=== PATIENT | female | born 1940 | race Caucasian/White ===

== ENCOUNTER 2020-05-06 13:25 | Emergency (ER) | payer MEDICARE, SELFPAY ==
--- NOTE | ~2020-05-06 | XR_ITS ---
EXAMINATION: XR chest 2V EXAM DATE: 05/06/2020 14:54 INDICATION: Shortness of breath. CHF. TECHNIQUE: Frontal and lateral projections of the chest obtained and reviewed. Comparison is made to prior examination from 08/19/2018. FINDINGS: Triple lead pacemaker/AICD device. Cardiac monitoring leads. The lungs are clear. There a re no pleural effusions. Cardiac silhouette is prominent but magnified on this AP technique. There is no pneumothorax suspected. The bones and soft tissues are unremarkable. IMPRESSION: No acute cardiopulmonary findings. Reviewed, dictated and finalized at location A.
[2020-05-06 13:49] VITALS: BP 97/75; PULSE 74; RESP 22; TEMP 36.9; O2SAT 98
--- NOTE | 2020-05-06 14:04 | ECG_ITS ---
Measurements Intervals [place] Rate: 73 P: -85 OK: 135 QRS: -84 QRSD: 160 T: 87 QT: 499 QTc: 552 Interpretive Statements ELECTRONIC ATRIAL PACEMAKER ELECTRONIC VENTRICULAR PACEMAKER NO FURTHER INTERPRETATION IS POSSIBLE ATYPICAL ECG Electronically Signed On 05-06-2020 14:20:09 CDT by Franck East D.O.
[2020-05-06 14:07] VITALS: PULSE 73
[2020-05-06 14:38] LABS: Basophils Absolute Auto 0.1 K/mm3 (0.0-0.1); Basophils Percent Auto 0.8 % (0.2-1.2); Eosinophils Absolute Auto 0.2 K/mm3 (0-0.3); Eosinophils Percent Auto 2.2 % (0-4.4); Hematocrit 35.3 % (37.0-47.0); Hemoglobin 11.4 g/dL (12.0-15.0); Immature Granulocyte Absolute 0.03 K/mm3 (0.00-0.031); Immature Granulocyte Percent A 0.3 % (0-0.5); Lymphocytes Absolute Auto 2.04 K/mm3 (0.9-3.2); Lymphocytes Percent Auto 23.1 % (18.3-44.2); Mean Corpuscular HGB Conc 32.3 g/dl (32-36); Mean Corpuscular Hemoglobin 32.7 pg (26-34); Mean Corpuscular Volume 101.1 fl (80-100); Mean Platelet Volume 8.9 fl (7.4-10.4); Monocytes Percent Auto 11.6 % (2.6-8.5); Neutrophils Absolute Auto 5.5 K/mm3 (1.3-6.7); Platelet Count Result 244 k/mm3 (150-375); Red Blood Count 3.49 M/mm3 (4.2-5.4); Red Cell Distribution Width 13.2 % (11.5-14.5); White Blood Count 8.8 K/mm3 (4.5-10.0)
[2020-05-06 14:50] LABS: Alanine Aminotransferase 27 U/L (4-35); Albumin Level 4.2 g/dL (3.5-5.1); Alkaline Phosphatase 61 U/L (38-126); Anion Gap 5 mmol/L (8-16); Aspartate Amino Transferase 55 U/L (14-36); Bilirubin,Total 0.3 mg/dL (0.2-1.3); Blood Urea Nitrogen 20 mg/dL (7-17); Calcium 8.9 mg/dL (8.4-10.2); Carbon Dioxide 35 mmol/L (22-30); Chloride 100 mmol/L (98-107); Estimated CRCL calculation 21 ml/min; Estimated Glomerular Filt Rate 27; Glucose 93 mg/dL (65-105); Potassium 4.4 mmol/L (3.4-5.0); Sodium 140 mmol/L (137-145)
[2020-05-06 14:53] LABS: D Dimer 0.44 ug/mL (<0.48)
[2020-05-06 15:02] LABS: NT Pro B Type Natriuretic Pept 5020 PG/ML (5-100); Troponin I < 0.012 ng/mL (0.000-0.034)
--- NOTE | 2020-05-06 15:33 | ED.CHESTPAIN ---
HPI - Chest Pain General Chief Complaint: Chest Pain Stated Complaint: CP Time Seen by Provider: 05/06/20 13:32 Source: patient Mode of arrival: EMS Limitations: dementia History of Present Illness HPI narrative: 79-year-old female Patient states that her called an ambulance because he was worried about her breathing Patient states that her breathing is not too bad right now, but she does agree that is been getting worse for about a month She has a pacemaker but is not aware that she is ever had a history of heart failure, and she denies any primary lung disease Her difficulty is primarily exertional, she does not report that she has a orthopnea or paroxysmal nocturnal dyspnea She does not have a cough or a fever, she is not having any swelling of the extremities, and does not complain of chest pain Review of her old chart indicates an echocardiogram done several years ago showing marked left ventricular dilation and an ejection fraction of about 15% at that time Related Data Allergies Allergy/AdvReac Type Severity Reaction Status Date / Time ondansetron AdvReac Unknown Other Verified 11/29/18 10:35 PROCHLORPERAZINE EDISYLATE Allergy Severe NECK SPASMS Uncoded 11/29/18 10:35 PROCHLORPERAZINE MALEATE Allergy Severe NECK SPASMS Uncoded 11/29/18 10:35 Review of Systems Review of Systems: All systems reviewed & are unremarkable except as noted in HPI and below Constitutional: Constitutional: Denies chills, Reports fatigue, Denies fever(s), Denies headache(s) and Reports weakness Eyes: Eyes: Reports no additional eye complaints and Denies change in vision ENT: Denies headache(s), Denies epistaxis, Denies nasal congestion and Denies sore throat Cardiovascular: Cardiovascular: Denies chest pain, Denies leg edema, Denies palpitations and Denies dyspnea Respiratory: Respiratory: Denies cough and Reports dyspnea Gastrointestinal: Gastrointestinal: Denies abdominal pain, Denies diarrhea, Denies nausea and Denies vomiting Genitourinary: Genitourinary: Denies urinary frequency Musculoskeletal: Musculoskeletal: Denies deformity, Denies arthralgias, Denies joint swelling, Denies muscle weakness and Denies numbness Integumentary/Breasts: Skin/Breast: Denies rash and Denies wounds Neurologic: Denies headache(s) and Denies focal weakness Psychiatric: Psychiatric: Reports no additional psychiatric complaints Endocrine: Endocrine: Denies palpitations Hematologic/Lymphatic: Hematologic/Lymphatic: Denies easy bleeding and Denies easy bruising PMFSH Family History Family History (Updated 01/14/16 @ 10:40 by DOCTOR UNKNOWN) Sibling Family history of condition Mother Family history of dementia Social History Social History Smoking status: Never smoker Second hand tobacco smoke exposure: No Alcohol intake: current Exam Const: General: no acute distress, well developed, alert and awake Nutritional Appearance: well nourished HENMT: Head: normocephalic and atraumatic Ears: external ears normal General nose exam: No nasal discharge present and no epistaxis Face and sinus: face symmetric Eyes: Conjunctivae: conjunctivae normal Sclera: sclerae normal EOM: EOMs intact bilaterally Neck: Neck: normal visual inspection, supple and no JVD Chest: Chest palpation & inspection: deferred Other: Pacemaker present Resp: Effort & Inspection: normal respiratory effort Auscultation: clear to auscultation bilaterally, crackles (Few at the bases) and other (BS =) Cardio: Rate: regular rate Rhythm: regular rhythm Heart sounds: no gallops and no murmurs GI: Inspection: normal to inspection GI Palp: Yes Soft to palpation and No Tenderness to palpation present (GI) Back/Spine/Pelvis: Thoracic/Lumbar Spine: thoracic and lumbar spine normal to inspection Skin: General skin exam: normal color and no rashes or lesions noted Neuro: General: patient oriented x3 (alert) and moves all extremities Cranial nerves: Ye
[2020-05-06 16:45] VITALS: BP 106/73; PULSE 73; RESP 16; O2SAT 100
[2020-05-06 18:32] LABS: Troponin I < 0.012 ng/mL (0.000-0.034)
== END 2020-05-06 18:45 | disposition short-term general hospital (02) ==
PROVIDERS: Emergency Provider Emergency Medicine; PCP Family Medicine Adolescent Medicine
DX: I42.9 Cardiomyopathy, unspecified (principal); I50.9 Heart failure, unspecified; F03.90 Unspecified dementia, unspecified severity, without behavioral disturbance, psychotic disturbance, mood disturbance, and anxiety; Z95.0 Presence of cardiac pacemaker
CPT/HCPCS: 36415; 71046; 80053; 83880; 84484; 85025; 85380; 93005; 99285

== ENCOUNTER 2021-05-17 10:39 | Emergency (ER) | payer MEDICARE, SELFPAY ==
--- NOTE | ~2021-05-17 | XR_ITS ---
EXAMINATION: XR shoulder LT min 2V EXAM DATE: 05/17/2021 11:37 INDICATION: Fall ttp superior and posterior no deformity . TECHNIQUE: The following left shoulder projections obtained: frontal projection with internal rotatio n, frontal projection with external rotation, Grashey, and scapular Y view (4+ views). There is no p rior study for comparison. FINDINGS: No evidence of left shoulder rotator cuff calcific tendinosis. There is mild glenohumeral joint, moderate acromioclavicular joint primary osteoarthritis. Triple lead pacemaker/AICD device. T here are no acute fractures identified. 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 No acute fracture suspected. Reviewed, dictated and finalized at location A. 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 No acute fracture s uspected.
--- NOTE | ~2021-05-17 | CT_ITS ---
EXAMINATION: CT brain wo con EXAM DATE: 05/17/2021 11:58 INDICATION: Ground-level fall, struck head . TECHNIQUE: Spiral CT of the head was performed without contrast. Axial, coronal and sagittal images were reviewed. The dose-length product (DLP) for this examination was 529.67 mGy-cm. The exposure w as tailored according to patient size, and iterative reconstruction (ASIR) was used as additional dos e reduction technique. Comparison is made to prior examination from 08/19/2018. FINDINGS: There is no acute intraparenchymal hemorrhage. No evidence of intraparenchymal brain mass lesion. No evidence of acute infarction. Please note that initial head CT has limited sensitivity f or small or acute infarctions. There is mild to moderate periventricular and subcortical hypodensity, nonspecific but probably related to small vessel ischemic disease. There is mild to moderate promi nence of the sulci and ventricles related to cerebral atrophy. There is intracranial carotid arteri osclerosis. There are no extra-axial collections. There is no mass effect or midline shift. Patien t has had right-sided ocular lens surgery. Soft tissue is unremarkable. The visualized sinuses and mastoid air cells are well aerated. IMPRESSION: 1. No acute intracranial findings. 2. Chronic age related findings. Reviewed, dictated and finalized at location A.
[2021-05-17 10:37] VITALS: BP 125/62; PULSE 71; RESP 18; TEMP 36.3; O2SAT 97
--- NOTE | 2021-05-17 11:43 | ED.FALL ---
HPI - Fall General Chief Complaint: Fall Stated Complaint: unwitnessed fall Time Seen by Provider: 05/17/21 11:03 Source: patient History of Present Illness HPI Narrative: Patient presents after a fall. Patient and family were sitting on a bench at [place] they went to stand up the bench slipped away and patient fell onto her left shoulder and struck her head on the ground. Family was with her during the event they turned around and saw her on the ground. Patient reports left shoulder pain and a mild headache. Family brought her to the ER for further evaluation. Patient denies any focal numbness or weakness there is no loss of consciousness she denies use of blood thinners. Related Data Allergies Allergy/AdvReac Type Severity Reaction Status Date / Time ondansetron AdvReac Unknown Other Verified 05/17/21 11:02 PROCHLORPERAZINE EDISYLATE Allergy Severe NECK SPASMS Uncoded 05/17/21 11:02 PROCHLORPERAZINE MALEATE Allergy Severe NECK SPASMS Uncoded 05/17/21 11:02 Review of Systems Review of Systems: CONSTITUTIONAL: Denies fever, chills, or sweats. EYES: Denies visual changes, redness, or discharge. ENT: Denies rhinorrhea, congestion, sore throat, or otalgia. CARDIOVASCULAR: Denies chest pain, palpitations, or edema. RESPIRATORY: Denies cough or dyspnea. GASTROINTESTINAL: Denies abdominal pain, nausea, vomiting, or diarrhea. GENITOURINARY: Denies dysuria or hematuria. SKIN: Denies rash or itching. MUSCULOSKELETAL: Denies back pain, or myalgia. NEUROLOGIC: Denies numbness, dizziness, or weakness. PSYCHIATRIC: Denies anxiety or depression. All systems reviewed & are unremarkable except as noted in HPI and below PMFSH Past Medical History Medical History (Updated 05/17/21 @ 12:29 by Major Liao MD) Dementia Family History Family History Sibling Family history of condition Mother Family history of dementia Social History Social History Smoking status: Never smoker Second hand tobacco smoke exposure: No Alcohol intake: current Exam Narrative: GENERAL: Well-appearing, well-nourished, and in no acute distress. HEAD: Normocephalic, atraumatic. EYES: PERRLA and EOMI. ENT: Nares clear, no rhinorrhea or epistaxis. Mucous membranes moist. NECK: Supple. No masses. No JVD CHEST: Clear to auscultation. No respiratory distress. No wheezes rales or rhonchi HEART: Regular rate and rhythm. No murmur heard. Normal peripheral pulses. ABDOMEN: Soft, nontender, nondistended, normal active bowel sounds. EXTREMITIES: Normal range of motion. Tenderness palpation noted on the superior and posterior aspect of the left shoulder no obvious deformities no open or draining wounds SKIN: Warm, dry, no rash. NEURO: Cranial nerves II through XII are intact patient is 5 out of 5 strength in all extremities sensation intact to light touch in all extremities alert and oriented x3. PSYCH: Normal mood and affect. Course Reevaluation(s) Reevaluation #1: Patient is resting comfortably results and plan reviewed with patient and family patient family are comfortable with outpatient plan. Date: 05/17/21 Time: 12:24 Vital Signs Vital signs: Vital Signs Temperature 36.3 C L 05/17/21 10:37 Pulse Rate 71 05/17/21 10:37 Respiratory Rate 18 05/17/21 10:37 Blood Pressure 125/62 05/17/21 10:37 Pulse Oximetry 97 05/17/21 10:37 Temperature 36.3 C L 05/17/21 10:37 Pulse Rate 72 05/17/21 13:17 Respiratory Rate 18 05/17/21 13:17 Blood Pressure 138/60 05/17/21 13:17 Pulse Oximetry 100 05/17/21 13:17 MDM - Fall MDM Narrative Medical decision making narrative: H&P as above, vss, pt looks clinically well, exam with diffuse left shoulder pain no focal neurological deficits, imaging without acute process, additional labs/img considered, symptomatic relief available as needed, on reevaluation pt continues to
[2021-05-17 13:17] VITALS: BP 138/60; PULSE 72; RESP 18; O2SAT 100
== END 2021-05-17 13:18 ==
PROVIDERS: Emergency Provider Emergency Medicine
DX: S09.90XA Unspecified injury of head, initial encounter (principal); S49.92XA Unspecified injury of left shoulder and upper arm, initial encounter; F03.90 Unspecified dementia, unspecified severity, without behavioral disturbance, psychotic disturbance, mood disturbance, and anxiety; M19.012 Primary osteoarthritis, left shoulder; W18.39XA Other fall on same level, initial encounter
CPT/HCPCS: 70450; 73030; 99284

== ENCOUNTER 2021-05-26 14:20 | Emergency (ER) | payer MEDICARE, SELFPAY ==
--- NOTE | ~2021-05-26 | CT_ITS ---
EXAMINATION: CT chest abdomen pelvis w con DATE: 05/26/2021 17:17 INDICATION: Fall 9 days ago, worsening left flank pain. TECHNIQUE: Computed tomography (CT) of the chest, abdomen, and pelvis was performed with 100 mL Omnip aque-350 intravenous contrast. Automated exposure control and iterative reconstruction technique were employed. The dose-length product was 1306.50 mGy-cm. COMPARISON: CT abdomen pelvis 11/27/2018. FINDINGS: CHEST: No thoracic aortic injury. No mediastinal hematoma. No pericardial effusion. No acute lung injury. No pleural effusion or pneumothorax. Left chest fibrillator/pacer, with intact leads. ABDOMEN/PELVIS: No solid organ injury. No evidence of bowel or mesenteric injury. No free fluid or free air. No retroperitoneal hematoma. Pelvic contents are atraumatic. Hepatomegaly. Low-density liver, likely represent steatosis. Bilateral mild renal scarring and cortic al thinning. Mild bilateral perinephric stranding. Subcentimeter hypodensities in the kidneys, likely simple renal cysts. Diverticulosis without diverticulitis. Bladder wall thickening, as can be seen w ith cystitis in the appropriate clinical context. MUSCULOSKELETAL: Nondisplaced fractures of the left posterior seventh and 12th ribs. No fracture or traumatic malalignment of the thoracic or lumbar spine. Left flank contusion. IMPRESSION: Nondisplaced fractures of the left posterior seventh and 12th ribs, left flank contusion, no other ac padma traumatic process detected in the chest, abdomen, or pelvis. Possible cystitis. Reviewed, dictated and finalized at location K. IMPRESSION: Nondisplaced fractures of the left posterior seventh and 12th ribs, left flank contusion, no other acute traumatic process detected in the chest, abdomen, or pelvis. Possible cystitis.
[2021-05-26 14:41] VITALS: BP 118/54; PULSE 81; RESP 18; TEMP 36.1; O2SAT 96
[2021-05-26] MEDS: SODIUM CHLORIDE 0.9% IV 500 ML 999 ML IV CONT (15:52)
--- NOTE | 2021-05-26 15:55 | PC.NURSE ---
pt unable to urinate at this time. pt declining straight cath.
[2021-05-26 16:03] LABS: Basophils Absolute Auto 0.1 K/mm3 (0.0-0.1); Basophils Percent Auto 0.6 % (0.2-1.2); Eosinophils Absolute Auto 0.1 K/mm3 (0-0.3); Eosinophils Percent Auto 1.5 % (0-4.4); Hematocrit 34.7 % (37.0-47.0); Hemoglobin 11.1 g/dL (12.0-15.0); Immature Granulocyte Absolute 0.06 K/mm3 (0.00-0.031); Immature Granulocyte Percent A 0.6 % (0-0.5); Lymphocytes Absolute Auto 1.39 K/mm3 (0.9-3.2); Mean Corpuscular Hemoglobin 33.6 pg (26-34); Mean Corpuscular Volume 105.2 fl (80-100); Mean Platelet Volume 9.3 fl (7.4-10.4); Monocytes Absolute Auto 0.8 K/mm3 (0.1-0.6); Monocytes Percent Auto 8.5 % (2.6-8.5); Neutrophils Absolute Auto 6.8 K/mm3 (1.3-6.7); Neutrophils Percent Auto 73.8 % (45.5-73.1); Platelet Count Result 229 k/mm3 (150-375); Red Cell Distribution Width 12.9 % (11.5-14.5); White Blood Count 9.3 K/mm3 (4.5-10.0)
[2021-05-26 16:55] LABS: Alanine Aminotransferase 27 U/L (4-35); Albumin Level 4.1 g/dL (3.5-5.1); Alkaline Phosphatase 64 U/L (38-126); Anion Gap 7 mmol/L (8-16); Aspartate Amino Transferase 45 U/L (14-36); Bilirubin,Total 0.3 mg/dL (0.2-1.3); Blood Urea Nitrogen 21 mg/dL (7-17); Calcium 8.3 mg/dL (8.4-10.2); Carbon Dioxide 27 mmol/L (22-30); Chloride 104 mmol/L (98-107); Estimated CRCL calculation 33 ml/min; Estimated Glomerular Filt Rate 40; Glucose 140 mg/dL (65-110); Potassium 3.9 mmol/L (3.4-5.0); Sodium 138 mmol/L (137-145)
--- NOTE | 2021-05-26 16:58 | PC.NURSE ---
pt went to bathroom and was unable to give urine sample.
--- NOTE | 2021-05-26 18:16 | ED.BACK ---
HPI - Back Pain/Injury General Chief Complaint: Back Pain/Injury Stated Complaint: back pain Time Seen by Provider: 05/26/21 15:19 Source: patient and family History of Present Illness HPI Narrative: Patient presents with left-sided back pain. She was seen approximately 10 days ago after a fall she had imaging of her head and shoulder there is no mention back pain at that time however over the past several days she has had left-sided back pain and development of bruising in that area and her family were concerned so she came to the ER for further evaluation. Pain is sharp, constant, worse with deep inspiration, no radiation. She reports her shoulder pain and had pain from prior evaluation has improved. Patient and family deny any new injuries Related Data Allergies Allergy/AdvReac Type Severity Reaction Status Date / Time ondansetron AdvReac Unknown Other Verified 05/17/21 11:02 PROCHLORPERAZINE EDISYLATE Allergy Severe NECK SPASMS Uncoded 05/17/21 11:02 PROCHLORPERAZINE MALEATE Allergy Severe NECK SPASMS Uncoded 05/17/21 11:02 Review of Systems Review of Systems: CONSTITUTIONAL: Denies fever, chills, or sweats. EYES: Denies visual changes, redness, or discharge. ENT: Denies rhinorrhea, congestion, sore throat, or otalgia. CARDIOVASCULAR: Denies chest pain, palpitations, or edema. RESPIRATORY: Denies cough or dyspnea. GASTROINTESTINAL: Denies abdominal pain, nausea, vomiting, or diarrhea. GENITOURINARY: Denies dysuria or hematuria. SKIN: Denies rash or itching. MUSCULOSKELETAL: Denies joint pain, or myalgia. NEUROLOGIC: Denies headache, numbness, dizziness, or weakness. PSYCHIATRIC: Denies anxiety or depression. PMFSH Past Medical History Medical History Dementia Family History Family History Sibling Family history of condition Mother Family history of dementia Social History Social History Smoking status: Never smoker Second hand tobacco smoke exposure: No Alcohol intake: current Exam Narrative: GENERAL: Well-appearing, well-nourished, and in no acute distress. HEAD: Normocephalic, atraumatic. EYES: PERRLA and EOMI. ENT: Nares clear, no rhinorrhea or epistaxis. Mucous membranes moist. NECK: Supple. No masses. No JVD CHEST: Clear to auscultation. No respiratory distress. No wheezes rales or rhonchi HEART: Regular rate and rhythm. No murmur heard. Normal peripheral pulses. ABDOMEN: Soft, nontender, nondistended. BACK: Ecchymoses to the left lower thoracic back with tenderness along the lower posterior ribs no crepitus no open or draining wounds EXTREMITIES: Normal range of motion. No edema. SKIN: Warm, dry, no rash. NEURO: No focal deficits. Alert and oriented x3. PSYCH: Normal mood and affect. Course Reevaluation(s) Reevaluation #1: Patient continues with her pain on the left back she continues to deny the need for pain medication results reviewed with patient and family patient and family are comfortable with the outpatient plan. Date: 05/26/21 Time: 18:23 Vital Signs Vital signs: Vital Signs Temperature 36.1 C L 05/26/21 14:41 Pulse Rate 81 05/26/21 14:41 Respiratory Rate 18 05/26/21 14:41 Blood Pressure 118/54 L 05/26/21 14:41 Pulse Oximetry 96 05/26/21 14:41 Temperature 36.1 C L 05/26/21 14:41 Pulse Rate 81 05/26/21 14:41 Respiratory Rate 18 05/26/21 14:41 Blood Pressure 118/54 L 05/26/21 14:41 Pulse Oximetry 96 05/26/21 14:41 MDM - Back Pain/Injury MDM Narrative Medical decision making narrative: H&P as above, vss, pt looks clinically well, exam ecchymosis and tenderness on the left lower posterior chest wall, labs clinic unremarkable for acute process, img with 2 nondisplaced rib fractures, additional labs/img considered, symptomatic relief available as needed, on reevaluation pt continues t
== END 2021-05-26 18:35 ==
PROVIDERS: Emergency Provider Emergency Medicine
DX: S22.42XA Multiple fractures of ribs, left side, initial encounter for closed fracture (principal); F03.90 Unspecified dementia, unspecified severity, without behavioral disturbance, psychotic disturbance, mood disturbance, and anxiety; W19.XXXA Unspecified fall, initial encounter
CPT/HCPCS: 36415; 71260; 74177; 80053; 85025; 96360; 99284; J7040; Q9967

== ENCOUNTER 2021-09-12 14:30 | Emergency (ER) | payer MEDICARE, SELFPAY ==
--- NOTE | ~2021-09-12 | XR_ITS ---
EXAM: XR foot LT min 3V DATE: 09/12/2021 14:59 HISTORY: tripped and hurt left foot PAIN MEDIAL . COMPARISON: None available. FINDINGS: Decreased mineralization. No fracture or dislocation. No lytic or blastic lesion. Scattere d moderate degenerative changes. Plantar enthesopathy. No erosion or periosteal change. Soft tissues within normal limits. IMPRESSION: No acute osseous finding in the left foot. Reviewed, dictated and finalized at location K.
[2021-09-12 14:39] VITALS: BP 103/87; PULSE 73; RESP 16; TEMP 36.6; O2SAT 96
--- NOTE | 2021-09-12 15:39 | ED.GENADULT ---
HPI - General Adult General Chief complaint: Extremity Injury, Lower Stated complaint: fall, left foot pain Time Seen by Provider: 09/12/21 15:29 History of Present Illness HPI narrative: 81-year-old female presents for evaluation of left dorsal foot pain after stumbling while walking with her walker. Since then she has felt a dorsal foot pain over the first metatarsal. She is able to ambulate but it is painful to do so. No head or neck injury. Related Data Allergies Allergy/AdvReac Type Severity Reaction Status Date / Time ondansetron AdvReac Unknown Other Verified 09/12/21 15:29 PROCHLORPERAZINE EDISYLATE Allergy Severe NECK SPASMS Uncoded 09/12/21 15:29 PROCHLORPERAZINE MALEATE Allergy Severe NECK SPASMS Uncoded 09/12/21 15:29 Review of Systems Review of Systems: CONSTITUTIONAL: Denies fever, chills, or sweats. EYES: Denies visual changes, redness, or discharge. ENT: Denies rhinorrhea, congestion, sore throat, or otalgia. CARDIOVASCULAR: Denies chest pain, palpitations, or edema. RESPIRATORY: Denies cough or dyspnea. GASTROINTESTINAL: Denies abdominal pain, nausea, vomiting, or diarrhea. GENITOURINARY: Denies dysuria or hematuria. SKIN: Denies rash or itching. MUSCULOSKELETAL: Denies back pain, joint pain, or myalgia. NEUROLOGIC: Denies headache, numbness, or weakness. PSYCHIATRIC: Denies anxiety or depression. PMFSH Past Medical History Medical History Dementia Family History Family History Sibling Family history of condition Mother Family history of dementia Social History Social History Smoking status: Never smoker Second hand tobacco smoke exposure: No Alcohol intake: current Exam Narrative: GENERAL: Well-appearing, well-nourished, and in no acute distress. HEAD: Normocephalic, atraumatic. EYES: PERRLA and EOMI. ENT: Nares clear, no rhinorrhea or epistaxis. Mucous membranes moist. NECK: Supple. CHEST: Clear to auscultation. No respiratory distress. HEART: Regular rate and rhythm. No murmur heard. Normal peripheral pulses. ABDOMEN: Soft, nontender, nondistended, normal active bowel sounds. EXTREMITIES: Normal range of motion. No edema., Mild redness over the left first MTP SKIN: Warm, dry, no rash. NEURO: No focal deficits. Alert and oriented x3. PSYCH: Normal mood and affect. Course Vital Signs Vital signs: Vital Signs Temperature 97.8 F 09/12/21 14:39 Pulse Rate 73 09/12/21 14:39 Respiratory Rate 16 09/12/21 14:39 Blood Pressure 103/87 09/12/21 14:39 Pulse Oximetry 96 09/12/21 14:39 Oxygen Delivery Room Air 09/12/21 14:39 Temperature 97.8 F 09/12/21 14:39 Pulse Rate 73 09/12/21 14:39 Respiratory Rate 16 09/12/21 14:39 Blood Pressure 103/87 09/12/21 14:39 Pulse Oximetry 96 09/12/21 14:39 Oxygen Delivery Room Air 09/12/21 14:39 Medical Decision Making MDM Narrative Medical decision making narrative: 81-year-old female with left dorsal foot pain after stumbling. X-ray is unremarkable. Compressive wrap applied patient is stable for discharge. Vital Signs Vital Signs: Vital Signs Temperature 97.8 F 09/12/21 14:39 Pulse Rate 73 09/12/21 14:39 Respiratory Rate 16 09/12/21 14:39 Blood Pressure 103/87 09/12/21 14:39 Pulse Oximetry 96 09/12/21 14:39 Oxygen Delivery Room Air 09/12/21 14:39 Temperature 97.8 F 09/12/21 14:39 Pulse Rate 73 09/12/21 14:39 Respiratory Rate 16 09/12/21 14:39 Blood Pressure 103/87 09/12/21 14:39 Pulse Oximetry 96 09/12/21 14:39 Oxygen Delivery Room Air 09/12/21 14:39 Discharge Plan Discharge Clinical Impression: Bruise Patient Disposition: Home, Self-Care Condition: Stable Instructions: Antibiotic Form Prescriptions: No Action gabapentin 300 mg capsule 300 mg PO D
[2021-09-12] MEDS: ACETAMINOPHEN 325 MG TABLET 650 MG PO (15:51)
== END 2021-09-12 16:18 | disposition home or self-care (01) ==
PROVIDERS: Emergency Provider Emergency Medicine
DX: S90.32XA Contusion of left foot, initial encounter (principal); F03.90 Unspecified dementia, unspecified severity, without behavioral disturbance, psychotic disturbance, mood disturbance, and anxiety; W18.40XA Slipping, tripping and stumbling without falling, unspecified, initial encounter
CPT/HCPCS: 73630; 99283; A9270

== ENCOUNTER 2022-04-27 12:37 | Observation (INO) | payer MEDICARE, SELFPAY ==
[2022-04-27] VITALS (31 sets, daily range): BP systolic 85–124; BP diastolic 54–70; PULSE 70–80; RESP 13–22; TEMP 36.2–37.1; O2SAT 95–98; BMI 23.8; BMI 25.4
--- NOTE | ~2022-04-27 | CT_ITS ---
EXAMINATION: CT brain wo con INDICATION: Transient alteration of awareness COMPARISON: 05/17/2021 TECHNIQUE: Standard unenhanced head CT. The dose-length product (DLP) was 605.33 mGy-cm. The mA was a djusted according to patient size. Iterative reconstruction technique was employed. FINDINGS: There is no acute intraparenchymal hemorrhage. No evidence of mass lesion. No evidence of a cute infarction. There is mild periventricular and subcortical hypodensity probably related to small vessel ischemic disease. There is mild prominence of the sulci and ventricles related to cerebral atr ophy. Intracranial calcified cerebral atherosclerosis is noted. There are no extra-axial collections. There is no mass effect or midline shift. The orbits and soft tissues are unremarkable. The visualiz ed sinuses and mastoid air cells are well aerated. IMPRESSION: 1. No acute intracranial abnormality. 2. Age related findings. Reviewed, dictated and finalized at location L.
--- NOTE | ~2022-04-27 | XR_ITS ---
EXAMINATION: XR humerus RT INDICATION: Right arm pain TECHNIQUE: Two views of the right humerus are obtained. COMPARISON: None available FINDINGS: Bone alignment is normal. There is no fracture. The soft tissues are unremarkable. 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 IMPRESSION: 1. No acute osseous abnormality. Reviewed, dictated and finalized at location L.
--- NOTE | ~2022-04-27 | XR_ITS ---
EXAMINATION: XR humerus LT INDICATION: Left arm pain after fall TECHNIQUE: Two views of the left humerus are obtained. COMPARISON: None available FINDINGS: Bone alignment is normal. There is no fracture. There is mild osteoarthritis of the shoulde r. The soft tissues are unremarkable. A cardiac pacemaker is noted. IMPRESSION: 1. No acute osseous abnormality. Reviewed, dictated and finalized at location L.
--- NOTE | ~2022-04-27 | XR_ITS ---
EXAMINATION: XR chest 1V INDICATION: Chest pain after fall TECHNIQUE: AP view of the chest is obtained. COMPARISON: 05/06/2020 FINDINGS: The lungs are free of acute opacities. No pleural effusion or pneumothorax. The heart size is normal. A triple lead cardiac pacemaker of the left chest wall ends with leads in expected locatio ns. IMPRESSION: 1. No acute cardiopulmonary abnormality. Reviewed, dictated and finalized at location L.
--- NOTE | 2022-04-27 12:56 | ECG_ITS ---
Measurements Intervals [place] Rate: 73 P: 263 [place]: 138 QRS: -89 QRSD: 164 T: 82 QT: 413 QTc: 456 Interpretive Statements ELECTRONIC ATRIAL PACEMAKER ELECTRONIC VENTRICULAR PACEMAKER NO FURTHER INTERPRETATION IS POSSIBLE ATYPICAL ECG COMPARED TO ECG 05/06/2020 14:17:34 NO SIGNIFICANT CHANGES Electronically Signed On 04-27-2022 14:04:28 CDT by Franck East D.O.
--- NOTE | 2022-04-27 13:12 | ED.SYNCOPE ---
HPI - Syncope General Chief Complaint: Seizure Stated Complaint: Seizure Time Seen by Provider: 04/27/22 12:44 Source: patient, family, EMS, RN notes reviewed and old records reviewed Mode of arrival: EMS Limitations: dementia History of Present Illness HPI narrative: This is s 81 year old female with history of dementia who presents from [place] for evaluation of possible syncope vs seizure. It is reported that patient stood up and she had jerking movement. She then fell backwards hitting her head. It is reported that she loss consciousness for a minute . They were able to get her up, and they deny postictal period. Patient had bowel movement afterwards so nursing is cleaning patient on arrival to ER. Patient's only complaint is left upper arm pain with movement. Her is at bedside . He states that she normally walks with a walker. Related Data Home Medications Medication Instructions Recorded Confirmed Calcium + D 1 tab-cap PO BID 04/27/22 04/27/22 amiodarone 100 mg tablet 100 mg PO DAILY 04/27/22 04/27/22 cyanocobalamin (vitamin B-12) 1,000 mcg PO DAILY 04/27/22 04/27/22 1,000 mcg tablet difluprednate 0.05 % eye drops 1 drp RIGHT EYE QID 04/27/22 04/27/22 donepezil 10 mg tablet 10 mg PO DAILY 04/27/22 04/27/22 escitalopram oxalate 10 mg tablet 10 mg PO DAILY 04/27/22 04/27/22 furosemide 40 mg tablet 40 mg PO DAILY 04/27/22 04/27/22 ketoconazole 2 % shampoo 1 applic topical 3XW 04/27/22 04/27/22 lidocaine 5 % topical patch 1 patch transdermal DAILY 04/27/22 04/27/22 light mineral oil-mineral oil (PF) 1 drp ophthalmic (eye) QID 04/27/22 04/27/22 0.5 %-0.5 % eye drops,dropperette (Retaine MGD (PF)) loperamide 1 cap PO QID PRN Diarrhea 04/27/22 04/27/22 metoprolol succinate 25 mg 25 mg PO DAILY 04/27/22 04/27/22 tablet,extended release 24 hr mirtazapine 15 mg tablet 15 mg PO DAILY 04/27/22 04/27/22 pantoprazole 40 mg tablet,delayed 40 mg PO BID 04/27/22 04/27/22 release potassium chloride 10 mEq 10 meq PO DAILY 04/27/22 04/27/22 tablet,extended release simvastatin 20 mg tablet 20 mg PO HS 04/27/22 04/27/22 triamcinolone acetonide 0.1 % 1 applic topical BID 04/27/22 04/27/22 topical cream white petrolatum-mineral oil 80 1 applic EACH EYE HS 04/27/22 04/27/22 %-20 % eye ointment (Retaine PM) Allergies Allergy/AdvReac Type Severity Reaction Status Date / Time ondansetron AdvReac Unknown Other Verified 09/12/21 15:29 PROCHLORPERAZINE EDISYLATE Allergy Severe NECK SPASMS Uncoded 09/12/21 15:29 PROCHLORPERAZINE MALEATE Allergy Severe NECK SPASMS Uncoded 09/12/21 15:29 Review of Systems Constitutional: Constitutional: Denies weakness Cardiovascular: Cardiovascular: Denies syncope, Denies rapid heart rate, Denies irregular heart rhythm, Denies leg edema and Denies dyspnea Respiratory: Respiratory: Denies chest congestion, Denies hemoptysis, Denies excessive phlegm production and Denies dyspnea Gastrointestinal: Gastrointestinal: Denies abdominal pain, Denies hematochezia, Denies diarrhea and Denies vomiting Genitourinary: Genitourinary: Denies hematuria and Denies dysuria Musculoskeletal: Musculoskeletal: Reports arthralgias, Denies joint swelling, Denies loss of height and Denies muscle weakness Neurologic: Denies syncope, Denies focal weakness and Denies weakness [facility] Past Medical History Medical History (Updated 04/27/22 @ 21:47 by Meghan Persaud MD) Dementia Hypertension Other hyperlipidemia Surgical History Surgical History (Updated 04/27/22 @ 13:18 by Meghan Persaud MD) History of appendectomy Family History Family History Sibling Family history of condition Mother Family history of dementia Social History Social History Smoking status: Never smoker Second hand tobacco smoke exposure: No Alcohol intake: never Substance use: never [place]
[2022-04-27 13:15] LABS: Hematocrit 35.3 % (37.0-47.0); Hemoglobin 11.5 g/dL (12.0-15.0); Mean Corpuscular HGB Conc 32.6 g/dl (32-36); Mean Corpuscular Hemoglobin 32.1 pg (26-34); Mean Corpuscular Volume 98.6 fl (80-100); Red Blood Count 3.58 M/mm3 (4.2-5.4); White Blood Count 9.6 K/mm3 (4.5-10.0)
[2022-04-27 13:16] LABS: Basophils Absolute Auto 0.1 K/mm3 (0.0-0.1); Basophils Percent Auto 0.5 % (0.2-1.2); Eosinophils Absolute Auto 0.3 K/mm3 (0-0.3); Eosinophils Percent Auto 3.1 % (0-4.4); Immature Granulocyte Absolute 0.06 K/mm3 (0.00-0.031); Immature Granulocyte Percent A 0.6 % (0-0.5); Lymphocytes Percent Auto 14.6 % (18.3-44.2); Mean Platelet Volume 9.6 fl (7.4-10.4); Monocytes Absolute Auto 0.7 K/mm3 (0.1-0.6); Monocytes Percent Auto 7.6 % (2.6-8.5); Neutrophils Percent Auto 73.6 % (45.5-73.1); Platelet Count Result 219 k/mm3 (150-375)
[2022-04-27 13:28] LABS: Alanine Aminotransferase 19 U/L (6-35); Albumin Level 4.1 g/dL (3.5-5.1); Alkaline Phosphatase 72 U/L (38-126); Anion Gap 9 mmol/L (8-16); Aspartate Amino Transferase 30 U/L (14-36); Bilirubin,Total 0.6 mg/dL (0.2-1.3); Blood Urea Nitrogen 18 mg/dL (7-17); Calcium 8.6 mg/dL (8.4-10.2); Carbon Dioxide 30 mmol/L (22-30); Chloride 102 mmol/L (98-107); Estimated CRCL calculation 34 ml/min; Estimated Glomerular Filt Rate 40; Glucose 155 mg/dL (65-110); Potassium 3.5 mmol/L (3.4-5.0); Sodium 141 mmol/L (137-145)
[2022-04-27 13:33] LABS: Glucose Point of Care 152 mg/dl (65-105)
[2022-04-27 13:34] LABS: INR 1.2; Prothrombin Time 14.4 Seconds (11.1-14.7)
[2022-04-27 13:40] LABS: Troponin I < 0.012 ng/mL (0.000-0.034)
[2022-04-27 13:42] LABS: Partial Thromboplastin Time 25.1 SECONDS (22.3-36.8)
--- NOTE | 2022-04-27 13:56 | PC.NURSE ---
Spoke with daughter, gave update. Hx of alzheimer's and has pacemaker Pt sees neurology - Dr Ekta Orourke at [facility]. 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.
--- NOTE | 2022-04-27 13:58 | PC.NURSE ---
Pt's daughter states patient has alzheimers, regularly wanders at night.
[2022-04-27 14:23] LABS: Appearance Urine Cloudy (Clear); Bacteria Urine 4+ /hpf; Bilirubin Urine Negative (Negative); Blood Urine 2+ (Negative); Calcium Oxalate Crystals Urine Present /hpf; Color Urine Yellow (Yellow); Glucose Urine UA Negative (Negative); Ketones Urine Negative (Negative); Leukocyte Esterase Ur 2+ LEU/UL (Negative); Need Manual Microscopic Reviewed; Nitrate Urine Positive (Negative); Protein Urine Negative (Negative); Specific Grav Ur 1.011 (1.001-1.035); Squamous Epithelial Cell Urine None seen /hpf (Few); Urobilinogen Urine 0.2 mg/dL (<2.0); pH Urine 5.5 (5.0-9.0)
--- NOTE | 2022-04-27 14:23 | PC.NURSE ---
Pt off floor to radiology.
[2022-04-27 14:31] LABS: Add Urine Microscopic? YES
--- NOTE | 2022-04-27 18:00 | PM.IMHP ---
H&P: HPI History of Present Illness Date/Time: 04/27/22 18:00 Chief Complaint: Possible seizure. Narrative: This is a 81-year-old female with dementia, paroxysmal atrial fibrillation, mixed systolic and diastolic congestive heart failure, nonischemic cardiomyopathy status post PM/ICD insertion, dyslipidemia, and GERD presented to the emergency department via EMS from [place] for evaluation of a possible seizure. Given her significant short-term memory loss she is not able to provide an accurate history and as such all of the following is obtained from the triage and ED physician notes, her electronic medical records, and her who is at bedside. After having lunch she stood up, reported feeling a bit dizzy, and she then fell backwards and struck her head on the ground. She was reportedly unconscious for approximately 1 minute and there were reports that she was demonstrating jerking movements. She came to and seemed to be in her usual state and staff assisted her up. There were concerns for possible seizure though she has no history of such, has not had any recent medication changes, and there was no reports of tongue bite or postictal state. Vital signs were stable on arrival to the ED though she was found to be quite orthostatics, with a drop in blood pressure of over 30 point when going from supine to sitting. She is being admitted in this setting for close monitoring. At the time my evaluation she has no complaints aside from that of left shoulder discomfort. Review of Systems Review of Systems: Limited given significant short-term memory loss. She currently denies headache, chest pain, shortness a breath, nausea. [facility] Past Medical History Medical History (Updated 04/27/22 @ 22:52 by Fiona Rivera PA-C) Chronic kidney disease, stage 3 Combined systolic and diastolic congestive heart failure Echo in August 2016 showed severe enlargement of the left ventricular cavity with concentric LVH, severe global left ventricular systolic dysfunction with an EF of 14%, restrictive diastolic dysfunction grade 3-4, moderate right ventricular hypokinesis, left atrial enlargement, moderate MVR, moderate AVR, and mild pulmonary hypertension. Subsequent cardiac catheterization showed normal coronary arteries. Dementia Dyslipidemia Hepatic steatosis Hypertension Kidney stones Nonischemic cardiomyopathy Paroxysmal atrial fibrillation Surgical History Surgical History (Updated 04/27/22 @ 22:47 by Fiona Rivera PA-C) History of appendectomy History of cardiac catheterization Presence of combination internal cardiac defibrillator (ICD) and pacemaker Family History Family History Sibling Family history of condition Mother Family history of dementia Social History Social History Social History: Surrogate medical decision maker: Jhonny Santizo (spouse) and Mary Grace Sales (daughter). Code status: Full code. Smoking status: Never smoker Second hand tobacco smoke exposure: No Alcohol intake: never Substance use: never Lack of Transportation: No Lack of Food: Never True Current Housing: I Have Housing Concerned About Future Housing: No Difficulty Paying Gas/Electric Bills: No Difficulty Paying for Meds: No Currently Unemployed: No Education: Bachelor's Degree Difficulty w/ Childcare or Family Care: No Additional living arrangements comments: Memory care at [place]. 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 Spiritual care concerns: No Meds Home Medications and Allergies Home Medications Medication Instructions Recorded Confirmed Type Calcium + D 1 tab-cap PO BID 04/27/22 04/27/22 History amiodarone 100 mg tablet 100 mg PO DAILY 04/27/22 04/27/22 History cyanocobalamin (vitamin B-12) 1,000 mcg PO DAILY 04/27/22 04/27/22 History 1,
--- NOTE | 2022-04-27 18:00 | PC.NURSE ---
Daughter, Mary Grace, upset that patient will not be assigned a sitter. States patient attempts to get OOB and wander. Special arrangements have been arranged with boarding house manager to allow family members to stay tonight. Daughter continues to be upset, has been transferred to speak directly with boarding house manager. Change nurse and MD aware.
[2022-04-27] MEDS: SODIUM CHLORIDE 0.9% IV 1,000 ML 999 ML IV CONT (18:19)
--- NOTE | 2022-04-27 18:40 | PC.NURSE ---
Report called to Mandy on 3rd Med Surg.
[2022-04-27] MEDS: SODIUM CHLORIDE 0.9% IV 1,000 ML 125 ML IV CONT (19:00)
--- NOTE | 2022-04-27 19:17 | PC.NURSE ---
Pt taken off floor on tele for admission
--- NOTE | 2022-04-27 19:21 | ADMGEN ---
This patient, Nora Santizo, was admitted to 3 [facility] Surg Room 320-01. Patient/family oriented to hospital policies and general routines including ID bracelet, bed and alarms, visiting hours, pain management, procedures, bathroom and other care routines, personal items, smoking policy, room service/diet, and visiting hours. Information on how to activate the Rapid Response Team has been discussed. Patient/Family are encouraged to report perceived risks to care and to ask questions if they do not understand what they are told or what they should do.
[2022-04-28] VITALS (10 sets, daily range): BP systolic 107–125; BP diastolic 49–74; PULSE 73–77; RESP 16–18; TEMP 36.3–36.6; O2SAT 94–98
[2022-04-28] MEDS: PANTOPRAZOLE 40 MG TABLET PO ×2 (00:16→08:50)
[2022-04-28] MEDS: SODIUM CHLORIDE 0.9% IV 1,000 ML 80 ML IV CONT (04:48)
[2022-04-28 06:38] LABS: Basophils Percent Auto 0.5 % (0.2-1.2); Eosinophils Absolute Auto 0.2 K/mm3 (0-0.3); Eosinophils Percent Auto 2.3 % (0-4.4); Hematocrit 32.1 % (37.0-47.0); Hemoglobin 10.5 g/dL (12.0-15.0); Immature Granulocyte Absolute 0.03 K/mm3 (0.00-0.031); Immature Granulocyte Percent A 0.4 % (0-0.5); Lymphocytes Absolute Auto 1.37 K/mm3 (0.9-3.2); Lymphocytes Percent Auto 17.4 % (18.3-44.2); Mean Corpuscular HGB Conc 32.7 g/dl (32-36); Mean Corpuscular Hemoglobin 32.8 pg (26-34); Mean Corpuscular Volume 100.3 fl (80-100); Mean Platelet Volume 9.7 fl (7.4-10.4); Monocytes Absolute Auto 0.6 K/mm3 (0.1-0.6); Monocytes Percent Auto 8.1 % (2.6-8.5); Neutrophils Absolute Auto 5.6 K/mm3 (1.3-6.7); Neutrophils Percent Auto 71.3 % (45.5-73.1); Platelet Count Result 171 k/mm3 (150-375); Red Cell Distribution Width 13.1 % (11.5-14.5); White Blood Count 7.9 K/mm3 (4.5-10.0)
[2022-04-28 07:01] LABS: Alanine Aminotransferase 15 U/L (6-35); Albumin Level 3.4 g/dL (3.5-5.1); Alkaline Phosphatase 60 U/L (38-126); Anion Gap 3 mmol/L (8-16); Aspartate Amino Transferase 21 U/L (14-36); Bilirubin,Total 0.6 mg/dL (0.2-1.3); Blood Urea Nitrogen 14 mg/dL (7-17); Calcium 8.3 mg/dL (8.4-10.2); Carbon Dioxide 29 mmol/L (22-30); Chloride 108 mmol/L (98-107); Estimated CRCL calculation 32 ml/min; Estimated Glomerular Filt Rate 48; Glucose 104 mg/dL (65-110); Magnesium 1.9 mg/dL (1.6-2.3); Potassium 3.5 mmol/L (3.4-5.0); Sodium 140 mmol/L (137-145)
--- NOTE | 2022-04-28 08:00 | ECHO_ITS ---
Patient Info Name: Nora Santizo Age: 81 years : 1940 Gender: Female Ht: 64 in Wt: 147 lbs BSA: 1.75 m2 HR: 73 bpm BP: 124 Heart Rhythm: Paced Exam Date: 04/28/2022 1:10 PM Exam Location: [facility] Pulmonary Patient Status: Outpatient Admit Date: 04/27/2022 Staff Ordering Physician: Fiona Rivera PA-C Water[employer] Material Folder: Scott Erickson RDCS, RT Attending Provider: Maral Flores MD Referring Physician: Miguel WARREN; Exam Type: CA echo doppler color flow Study Info Complete two-dimensional, color flow and Doppler transthoracic echocardiogram is performed. Strain analysis performed. Summary 1. Complete two-dimensional, color flow and Doppler transthoracic echocardiogram is performed. 2. Left ventricular chamber dimension is normal. 3. Left ventricular systolic function is normal, estimated at 50-55%. 4. Left ventricular septal wall motion is abnormal with septal motion related to pacing. 5. Right ventricular systolic function is normal. 6. There is moderate aortic valve sclerosis. 7. There is mild aortic valve stenosis with a peak velocity of 193 cm/s, mean gradient of 7 mmHg, and aortic valve area of 1.3 cm2. 8. There is moderate aortic valve regurgitation. 9. There is moderate mitral valve regurgitation. 10. There is moderate tricuspid valve regurgitation. Left Ventricle Left ventricular chamber dimension is normal. Left ventricular systolic function is normal, estimated at 50-55%. There is no increased left ventricular wall thickness. Left ventricular septal wall motion is abnormal with septal motion related to pacing. Global longitudinal strain is abnormal at -13 %. Right Ventricle Linear artifact in right ventricle suggestive of catheter(s), pacemaker lead(s), or ICD lead(s). Right ventricular chamber dimension is normal. Right ventricular systolic function is normal. Left Atria Left atrial chamber dimension is normal. Right Atria Linear artifact in the right atrium suggestive of catheter(s), pacemaker lead(s), or ICD lead(s). Right atrial chamber dimension is normal. Atrial Septum Intact interatrial septum visualized by color flow imaging. Aortic Valve The aortic valve is trileaflet. There is moderate aortic valve sclerosis. There is mild aortic valve stenosis with a peak velocity of 193 cm/s, mean gradient of 7 mmHg, and aortic valve area of 1.3 cm2. There is moderate aortic valve regurgitation. Pulmonic Valve The pulmonic valve is not well visualized. Mitral Valve The mitral valve has normal leaflets. There is no mitral valve stenosis. There is moderate mitral valve regurgitation. The mitral valve annulus is mildly calcified. Tricuspid Valve There is moderate tricuspid valve regurgitation. Pericardium/Pleural The pericardium appears epicardial fat pad. There is no pericardial effusion. Inferior Vena Cava Normal inferior vena cava with >50% collapse upon inspiration consistent with normal right atrial pressure, 3 mmHg. Aorta The aortic root size at the sinus of Valsalva is normal. Left Ventricular Outflow Tract Name Value Normal LVOT 2D LVOT Diameter 2.0 cm LVOT Doppler
[2022-04-28 08:35] LABS: Glucose Point of Care 96 mg/dl (65-105)
[2022-04-28] MEDS: DONEPEZIL HCL 10 MG TABLET PO (08:50)
[2022-04-28] MEDS: ESCITALOPRAM OXALATE 10 MG TABLET PO (08:50)
[2022-04-28] MEDS: MIRTAZAPINE 15 MG TABLET PO (08:50)
[2022-04-28] MEDS: LIDOCAINE 5% PATCH 1 PATCH TRANSDERM (08:50)
[2022-04-28] MEDS: METOPROLOL SUCCINATE EXT REL 25 MG TABCR PO (08:50)
[2022-04-28] MEDS: CYANOCOBALAMIN 1,000 MCG TABLET 1000 MCG PO (08:50)
[2022-04-28] MEDS: AMIODARONE HCL 100 MG TABLET PO (08:51)
[2022-04-28 11:57] LABS: Glucose Point of Care 100 mg/dl (65-105)
--- NOTE | 2022-04-28 15:03 | PM.IMPN ---
Progress Note: A&P Assessment and Plan (1) Fall from ground level: Code(s): W18.30XA - Fall on same level, unspecified, initial encounter Status: Acute Assessment and Plan: The patient had a witnessed fall from ground level. She fell backwards and struck her head on the floor. No acute injuries noted on imaging obtained upon arrival to the ED. Fall appears to be related to orthostatic hypotension. Initiate fall precautions. (2) Syncope due to orthostatic hypotension: Code(s): I95.1 - Orthostatic hypotension Status: Acute Assessment and Plan: It sounds as though she had a syncopal episode, most certainly due to orthostatic hypotension as she was reportedly feeling dizzy prior to the episode. In the emergency department her supine blood pressure was 118/58 and sitting was 85/70. Standing blood pressure was not obtained given this precipitous drop. Hydrate overnight. Monitor orthostatic vital signs Q shift. Hold furosemide for now. Continue antihypertensives with parameters. (3) Paroxysmal atrial fibrillation: Code(s): I48.0 - Paroxysmal atrial fibrillation Status: Acute Assessment and Plan: She is in a paced rhythm. Continue amiodarone. She is not on anticoagulation. (4) Urinary tract infection: Code(s): N39.0 - Urinary tract infection, site not specified Status: Acute Assessment and Plan: Continue ceftriaxone, pending urine culture. (5) Chronic kidney disease, stage 3: Code(s): N18.30 - Chronic kidney disease, stage 3 unspecified Status: Acute Assessment and Plan: Creatinine seems to be about her baseline. (6) Combined systolic and diastolic congestive heart failure: Code(s): I50.40 - Unspecified combined systolic (congestive) and diastolic (congestive) heart failure Status: Acute Assessment and Plan: Clinically compensated, possibly intravascularly depleted given orthostatic hypotension. Continue beta-padmini. Furosemide on hold overnight due to orthostatic hypotension. Subjective Date/time seen: 04/28/22 15:03 Exam Narrative: General: Nontoxic-appearing female supine in bed. Weight: 67.1 kg. BMI: 25.4. HEENT: Hematoma on the right occiput put. PERRL, EOMI. Sclera anicteric. Oral mucosa moist. No evidence of tongue or lip bite. Neck: Supple. No midline vertebral tenderness. Respiratory: Lungs are clear to auscultation bilaterally. Cardiovascular: Regular rate and rhythm with S1-S2. Diastolic murmur at the base, systolic murmur at the apex. Gastrointestinal: Abdomen is soft, nontender, and nondistended with positive bowel sounds. Skin: Warm and dry. Generalized pallor. Extremities: No cyanosis, clubbing, or significant edema. Radial and pedal pulses intact. Musculoskeletal: Tenderness to palpation over the left anterior shoulder. No deformity or bruising noted. Neurological: Alert to name and month of only. Cranial nerves 2-12 are grossly intact. Speech is clear. No facial asymmetry. No gross focal deficits to casual conversation. Psychiatric: Significant short-term memory loss. Pseudobulbar affect. Objective Data Vital Signs Vital Signs: Vital Signs - 24 hr 04/27/22 15:05 04/27/22 15:30 04/27/22 16:57 Temperature Pulse Rate 72 70 Respiratory Rate 16 15 Blood Pressure 118/58 L Pulse Oximetry Oxygen Delivery 04/27/22 16:59 04/27/22 16:06 04/27/22 16:25 Temperature Pulse Rate 76 75 Respiratory Rate 17 17 Blood Pressure 85/70 L Pulse Oximetry Oxygen Delivery 04/27/22 16:30 04/27/22 16:58 04/27/22 17:07 Temperature Pulse Rate 73 72 76 Respiratory Rate 14 16 14 Blood Pressure Pulse Oximetry Oxygen Delivery 04/27/22 17:16 04/27/22 17:17 04/27/22 17:30 Temperature Pulse Rate 73 71 76 Respiratory Rate 17 17 19 Blood Pressure 98/58 L Pulse Oximetry Oxygen Delivery 04/27/22 17:31 04/27/22 17:45 03
[2022-04-28 17:01] LABS: Glucose Point of Care 108 mg/dl (65-105)
--- NOTE | 2022-04-28 17:30 | PM.DS ---
DS: Admitting Diagnosis Discharge Date 04/28/2022 Admitting Diagnosis fall DS: Discharge Diagnosis Discharge Diagnosis (1) Fall from ground level: Code(s): W18.30XA - Fall on same level, unspecified, initial encounter Status: Acute (2) Syncope due to orthostatic hypotension: Code(s): I95.1 - Orthostatic hypotension Status: Acute (3) Paroxysmal atrial fibrillation: Code(s): I48.0 - Paroxysmal atrial fibrillation Status: Acute (4) Urinary tract infection: Code(s): N39.0 - Urinary tract infection, site not specified Status: Acute (5) Chronic kidney disease, stage 3: Code(s): N18.30 - Chronic kidney disease, stage 3 unspecified Status: Acute (6) Combined systolic and diastolic congestive heart failure: Code(s): I50.40 - Unspecified combined systolic (congestive) and diastolic (congestive) heart failure Status: Acute DS: Summary Hospital Course Hospital Course: # fall from ground level: The patient had a witnessed fall from ground level.? She fell backwards and struck her head on the floor. No acute injuries noted on imaging obtained upon arrival to the ED. Fall appears to be related to orthostatic hypotension. Initiate fall precautions. # syncope due to orthostatic hypotension: It sounds as though she had a syncopal episode, most certainly due to orthostatic hypotension as she was reportedly feeling dizzy prior to the episode. In the emergency department her supine blood pressure was 118/58 and sitting was 85/70. Standing blood pressure was not obtained given this precipitous drop. Hydrate overnight. Monitor orthostatic vital signs Q shift. Hold furosemide for now. Continue antihypertensives with parameters. Echo reviewed EF 50-55%. Moderate aortic valve sclerosis. Mild aortic valve stenosis. Moderate AR and mild moderate MR and moderate TR noted. Follow-up with cardiology as an outpatient basis. Pacemaker interrogated and no arrhythmia noted. # Paroxysmal atrial fibrillation: She is in a paced rhythm.? Continue amiodarone. She is not on anticoagulation. # Urinary tract infection: Continue ceftriaxone, urine culture no growth. Will switch to cefdinir at discharge # Chronic kidney disease, stage 3: Creatinine seems to be about her baseline. # Combined systolic and diastolic congestive heart failure: Clinically compensated, possibly intravascularly depleted given orthostatic hypotension. Continue beta-padmini. Furosemide on hold overnight due to orthostatic hypotension. furosemide Time Spent with Patient Time attestation: Total time spent providing and/or coordinating discharge services: 45 minutes Exam Narrative: General: Nontoxic-appearing female supine in bed. Weight: 67.1 kg. BMI: 25.4. HEENT: Hematoma on the right occiput put. PERRL, EOMI. Sclera anicteric. Oral mucosa moist. No evidence of tongue or lip bite. Neck: Supple. No midline vertebral tenderness. Respiratory: Lungs are clear to auscultation bilaterally. Cardiovascular: Regular rate and rhythm with S1-S2. Diastolic murmur at the base, systolic murmur at the apex. Gastrointestinal: Abdomen is soft, nontender, and nondistended with positive bowel sounds. Skin: Warm and dry. Generalized pallor. Extremities: No cyanosis, clubbing, or significant edema. Radial and pedal pulses intact. Musculoskeletal: Tenderness to palpation over the left anterior shoulder. No deformity or bruising noted. Neurological: Alert to name and month of only. Cranial nerves 2-12 are grossly intact. Speech is clear. No facial asymmetry. No gross focal deficits to casual conversation. Psychiatric: Significant short-term memory loss. Pseudobulbar affect. DS: Data Data Completed and Pending Completed studies during hospitalization: Exam Type: ? ? CA echo doppler color flow Study Info Complete two-dimensional, color flow and Doppler transthoracic echocardiogram is performed. ? Strain analysis p
== END 2022-04-28 19:35 ==
LOC: ANHED 13:24 → ANH3MEDSUR 20:46
PROVIDERS: Admitting Provider Family Medicine; Emergency Provider General Practice; Visit Provider Internal Medicine
DX: I95.1 Orthostatic hypotension (principal); M79.622 Pain in left upper arm; W18.30XA Fall on same level, unspecified, initial encounter; I48.0 Paroxysmal atrial fibrillation; N39.0 Urinary tract infection, site not specified; B96.20 Unspecified Escherichia coli [E. coli] as the cause of diseases classified elsewhere; I13.0 Hypertensive heart and chronic kidney disease with heart failure and stage 1 through stage 4 chronic kidney disease, or unspecified chronic kidney disease; N18.30 Chronic kidney disease, stage 3 unspecified; I50.40 Unspecified combined systolic (congestive) and diastolic (congestive) heart failure; I08.3 Combined rheumatic disorders of mitral, aortic and tricuspid valves; Z95.810 Presence of automatic (implantable) cardiac defibrillator; F03.90 Unspecified dementia, unspecified severity, without behavioral disturbance, psychotic disturbance, mood disturbance, and anxiety; E78.5 Hyperlipidemia, unspecified; Z99.89 Dependence on other enabling machines and devices; I42.8 Other cardiomyopathies; K21.9 Gastro-esophageal reflux disease without esophagitis; R41.3 Other amnesia; Z81.8 Family history of other mental and behavioral disorders; Z79.52 Long term (current) use of systemic steroids; Z79.899 Other long term (current) drug therapy
CPT/HCPCS: 36415; 70450; 71045; 73060; 80053; 81001; 82948; 83735; 84484; 85025; 85610; 85730; 87077; 87086; 87186; 93005; 93306; 96361; 96365; 99285; A9270; G0378; J0696; J7030

== ENCOUNTER 2022-04-29 15:48 | Observation (INO) | payer MEDICARE, SELFPAY ==
--- NOTE | ~2022-04-29 | XR_ITS ---
EXAMINATION: XR chest 1V portable DATE: 04/29/2022 16:15 INDICATION: Syncope. Confusion. TECHNIQUE: AP view of the chest was obtained. COMPARISON: Chest radiograph dated 04/27/22 FINDINGS: The lungs remain clear with no focal airspace opacities, pulmonary edema, pleural effusion or pneumot horax. The cardiomediastinal silhouette is within normal limits for AP technique. Three lead pacemake r/AICD seen with leads projecting over the expected locations of the right atrial appendage, apex of the right ventricle and overlying the left ventricle likely having traversed the coronary sinus. IMPRESSION: 1. No acute cardiopulmonary disease. Reviewed, dictated and finalized at location A.
--- NOTE | ~2022-04-29 | CT_ITS ---
EXAMINATION: CT brain wo con DATE: 04/29/2022 16:20 INDICATION: Altered mental status. Syncope. TECHNIQUE: Computed tomography (CT) of the head was performed without intravenous contrast. Sagittal and coronal reconstructions were performed. The mA was adjusted according to patient size. Iterative reconstruction technique was employed. The dose-length product was 605.33 mGy-cm. COMPARISON: head CT dated 04/27/2022 FINDINGS: No acute intracranial hemorrhage, acute infarction or abnormal extra axial fluid collection. There is mild to moderate scattered white matter hypoattenuation consistent with chronic small vessel ischemi c disease. Symmetric prominence of the sulci and ventricles consistent with mild to moderate age-appr opriate diffuse cerebral volume loss. Ventricles are normal and symmetric. No mass/mass effect. Sanchez es of right intraocular lens replacement. The orbits, paranasal sinuses and mastoid air cells are nor mal. IMPRESSION: 1. No acute intracranial process. 2. Age-related changes including mild to moderate diffuse volume loss and mild to moderate scattered white matter hypoattenuation consistent with chronic small vessel ischemic disease. Reviewed, dictated and finalized at location A. IMPRESSION: 1. No acute intracranial process. 2. Age-related changes including mild to moderate diffuse volume loss and mild to moderate scattered white matter hypoattenuation consistent with chronic smal l vessel ischemic disease.
--- NOTE | ~2022-04-29 | XR_ITS ---
XR humerus LT DATE: 04/29/2022 17:03 INDICATION: Left arm pain TECHNIQUE: AP and lateral views COMPARISON: 04/27/2022 left humerus FINDINGS: There is diffuse osteopenia. No fracture or dislocation, periosteal reaction or bone destr uction. IMPRESSION: Osteopenia Reviewed, dictated and finalized at location A. IMPRESSION: Osteopenia
--- NOTE | ~2022-04-29 | XR_ITS ---
XR shoulder LT min 2V DATE: 04/29/2022 17:03 INDICATION: Left arm pain. Fall. TECHNIQUE: 4 views COMPARISON: 05/17/2021 left shoulder FINDINGS: There is diffuse osteopenia. There is mild degenerative change at the acromioclavicular and glenohumeral joints No fracture or dislocation, periosteal reaction or bone destruction. No abnormal soft tissue calcifi cation. Left pacemaker device. IMPRESSION: Osteopenia Mild degenerative change Reviewed, dictated and finalized at location A.
--- NOTE | ~2022-04-29 | CT_ITS ---
EXAMINATION: CTA chest PE protocol DATE: 04/29/2022 19:59 INDICATION: Syncope. Elevated d-dimer. TECHNIQUE: Computed tomography angiography (CTA) of the chest was performed with 100 mL Omnipaque-350 intravenous contrast timed to evaluate the pulmonary arteries. Coronal maximum intensity projection 3D-reconstructions were created by the technologist. Automated exposure control and iterative reconst ruction technique were employed. Exam dose: 516.84 mGy-cm total exam DLP. COMPARISON: 04/30/2019 portable AP chest 05/26/2021 CT chest abdomen pelvis FINDINGS: There is diagnostic contrast enhancement of the pulmonary arteries and no evidence of pulmo nary embolism. There is aortic, great vessel and coronary calcified atherosclerosis. No thoracic aortic aneurysm. No hilar or mediastinal mass lesion or lymphadenopathy is detected. Cardiomegaly. Left-sided transvenous pacemaker device with right atrial, ventricular and coronary sinus leads. No pericardial or pleural effusion. There is discoid atelectasis and/or scarring in the lower lobes. No pulmonary consolidation. IMPRESSION: No evidence of pulmonary embolism Reviewed, dictated and finalized at Location A. Reviewed, dictated and finalized at location A.
--- NOTE | ~2022-04-29 | XR_ITS ---
Portable chest x-ray Comparison: 04/29/2022 at 4:13 PM Clinical History: Hypoxia Findings: Diffuse interstitial prominence is present in the lungs. Stable mild prominence of the rig ht hilum. Cardiomediastinal silhouette is stable, with pacemaker device. Bones and soft tissues are unremarkable. Impression: Diffuse interstitial prominence. Correlate for COPD or other chronic interstitial disease. Stable prominence of the right hilum. Pacemaker device. Reviewed, dictated and finalized at location . Impression: Diffuse interstitial prominence. Correlate for COPD or other chronic interstiti al disease. Stable prominence of the right hilum. Pacemaker device.
--- NOTE | ~2022-04-29 | CT_ITS ---
CT ANGIOGRAM NECK AND HEAD History: Arterial stenosis, syncope. Technique: Serial spiral axial images through the head and neck were obtained during arterial phase I V injection of 100 cc of Omnipaque 350. 3-D postprocessing and MIP images were then reconstructed on the remote workstation. Dose reduction technique was used on this scan by utilizing automated exposur e control and iterative reconstruction technique. The dose-length product (DLP) was 1093.56 mGy-cm. CTA neck findings: Bilateral vertebral arteries are patent. Bilateral common carotid, internal carot id, and external carotid arteries are patent. No stenosis, large vessel occlusion, or aneurysm. The p roximal right internal carotid artery demonstrates 0% stenosis relative to the normal distal artery l umen diameter. The proximal left internal carotid artery demonstrates 0% stenosis relative to the nor mal distal artery lumen diameter. Incidental note is made of a 6 mm left apical pulmonary nodule, as well as biapical interstitial thic kening, suggestive of interstitial edema. CTA head findings: Distal vertebral arteries, basilar artery, and posterior cerebral arteries are pat ent. Distal internal carotid arteries, middle cerebral arteries, and anterior cerebral arteries are p atent. No large vessel occlusion, stenosis, or aneurysm. Impression: No arterial abnormality seen on CTA of the head and neck. 6 mm left apical pulmonary nodule. According to Fleischner Society criteria, for a low-risk patient, follow-up CT at 6-12 months recommended, then consider additional 18-[address] For a high-risk pat ient, follow-up CT scan at 6-12 months, and at 18-24 months, is recommended. Interstitial pulmonary edema in the lung apices. Reviewed, dictated and finalized at location . Impression: No arterial abnormality seen on CTA of the head and neck. 6 mm left apical pulmonary nodule. According to Fleischner Society criteria, fo r a low-risk patient, follow-up CT at 6-12 months recommended, then consider ad ditional 18-[address] For a high-risk patient, follow-up CT scan at 6-12 mon ths, and at 18-24 months, is recommended. Interstitial pulmonary edema in the lung apices.
[2022-04-29 15:49] VITALS: PULSE 72; RESP 15; TEMP 36.6; O2SAT 97
--- NOTE | 2022-04-29 15:49 | ED.SYNCOPE ---
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 Patient history obtained via EMS and per care staff as patient has significant short-term memory loss and is unable to provide history. Patient believes that she may have fallen back upwards again. Per record, patient passed out while eating. This was witnessed. Short loss of consciousness. Reportedly patient's eyes rolled to the back of her head. Patient has no memory of this. Denies prodromal symptoms prior to this. Pt denies headache. She does not think she hit her head. She reports left arm pain near to her shoulder. She states this is worse with movement. She denies chest pain. I reviewed the patient's recent admission history and discharge summary yesterday from this facility. Pt also with urine culture from 04/27 with E.Coli. Related Data Home Medications Medication Instructions Recorded Confirmed Calcium + D 1 tab-cap PO BID 04/27/22 04/27/22 amiodarone 100 mg tablet 100 mg PO DAILY 04/27/22 04/27/22 cyanocobalamin (vitamin B-12) 1,000 mcg PO DAILY 04/27/22 04/27/22 1,000 mcg tablet difluprednate 0.05 % eye drops 1 drp RIGHT EYE QID 04/27/22 04/27/22 donepezil 10 mg tablet 10 mg PO DAILY 04/27/22 04/27/22 escitalopram oxalate 10 mg tablet 10 mg PO DAILY 04/27/22 04/27/22 ketoconazole 2 % shampoo 1 applic topical 3XW 04/27/22 04/27/22 lidocaine 5 % topical patch 1 patch transdermal DAILY 04/27/22 04/27/22 light mineral oil-mineral oil (PF) 1 drp ophthalmic (eye) QID 04/27/22 04/27/22 0.5 %-0.5 % eye drops,dropperette (Retaine MGD (PF)) loperamide 1 cap PO QID PRN Diarrhea 04/27/22 04/27/22 metoprolol succinate 25 mg 25 mg PO DAILY 04/27/22 04/27/22 tablet,extended release 24 hr mirtazapine 15 mg tablet 15 mg PO DAILY 04/27/22 04/27/22 pantoprazole 40 mg tablet,delayed 40 mg PO BID 04/27/22 04/27/22 release potassium chloride 10 mEq 10 meq PO DAILY 04/27/22 04/27/22 tablet,extended release simvastatin 20 mg tablet 20 mg PO HS 04/27/22 04/27/22 triamcinolone acetonide 0.1 % 1 applic topical BID 04/27/22 04/27/22 topical cream white petrolatum-mineral oil 80 1 applic EACH EYE HS 04/27/22 04/27/22 %-20 % eye ointment (Retaine PM) Allergies Allergy/AdvReac Type Severity Reaction Status Date / Time prochlorperazine Allergy Severe Neck Spasms Verified 04/28/22 08:20 ondansetron AdvReac Unknown Other Verified 09/12/21 15:29 Review of Systems Review of Systems: ROS unobtainable: Yes unobtainable due to mental status PMFSH Past Medical History Medical History Chronic kidney disease, stage 3 Combined systolic and diastolic congestive heart failure Echo in August 2016 showed severe enlargement of the left ventricular cavity with concentric LVH, severe global left ventricular systolic dysfunction with an EF of 14%, restrictive diastolic dysfunction grade 3-4, moderate right ventricular hypokinesis, left atrial enlargement, moderate MVR, moderate AVR, and mild pulmonary hypertension. Subsequent cardiac catheterization showed normal coronary arteries. Dementia Dyslipidemia Hepatic steatosis Hypertension Kidney stones Nonischemic cardiomyopathy Paroxysmal atrial fibrillation Surgical History Surgical History History of appendectomy History of cardiac catheterization Presence of combination internal cardiac defibrillator (ICD) and pacemaker Fa
--- NOTE | 2022-04-29 16:06 | ECG_ITS ---
Measurements Intervals [place] Rate: 73 P: -71 AR: 134 QRS: -89 QRSD: 167 T: 78 QT: 506 QTc: 560 Interpretive Statements ELECTRONIC ATRIAL PACEMAKER ELECTRONIC VENTRICULAR PACEMAKER BASELINE ARTIFACT- I, II, III, AVR, AVL, AVF NO FURTHER INTERPRETATION IS POSSIBLE ATYPICAL ECG COMPARED TO ECG 04/27/2022 13:39:40 NO SIGNIFICANT CHANGES Electronically Signed On 04-29-2022 20:45:18 CDT by Franck East D.O.
--- NOTE | 2022-04-29 17:14 | PC.NURSE ---
attempted X2 for IV access with no success. provider and charge histotechnologist made aware
[2022-04-29 17:56] LABS: Basophils Absolute Auto 0.1 K/mm3 (0.0-0.1); Basophils Percent Auto 0.7 % (0.2-1.2); Eosinophils Absolute Auto 0.4 K/mm3 (0-0.3); Eosinophils Percent Auto 4.6 % (0-4.4); Hematocrit 33.3 % (37.0-47.0); Hemoglobin 10.6 g/dL (12.0-15.0); Immature Granulocyte Absolute 0.03 K/mm3 (0.00-0.031); Immature Granulocyte Percent A 0.4 % (0-0.5); Lymphocytes Absolute Auto 1.75 K/mm3 (0.9-3.2); Lymphocytes Percent Auto 21.3 % (18.3-44.2); Mean Corpuscular HGB Conc 31.8 g/dl (32-36); Mean Corpuscular Hemoglobin 32.5 pg (26-34); Mean Corpuscular Volume 102.1 fl (80-100); Mean Platelet Volume 9.8 fl (7.4-10.4); Monocytes Absolute Auto 0.8 K/mm3 (0.1-0.6); Monocytes Percent Auto 9.2 % (2.6-8.5); Neutrophils Absolute Auto 5.3 K/mm3 (1.3-6.7); Neutrophils Percent Auto 63.8 % (45.5-73.1); Platelet Count Result 174 k/mm3 (150-375); Red Blood Count 3.26 M/mm3 (4.2-5.4); Red Cell Distribution Width 13.3 % (11.5-14.5); White Blood Count 8.2 K/mm3 (4.5-10.0)
[2022-04-29 18:04] LABS: INR 1.2; Prothrombin Time 14.9 Seconds (11.1-14.7)
[2022-04-29 18:05] LABS: Partial Thromboplastin Time 27.6 SECONDS (22.3-36.8)
[2022-04-29 18:07] LABS: Anion Gap 6 mmol/L (8-16); Blood Urea Nitrogen 14 mg/dL (7-17); Calcium 8.5 mg/dL (8.4-10.2); Carbon Dioxide 29 mmol/L (22-30); Chloride 109 mmol/L (98-107); Estimated CRCL calculation 30 ml/min; Estimated Glomerular Filt Rate 48; Glucose 106 mg/dL (65-110); Potassium 3.5 mmol/L (3.4-5.0); Sodium 144 mmol/L (137-145)
[2022-04-29] MEDS: SODIUM CHLORIDE 0.9% IV 1,000 ML 999 ML IV CONT (18:12)
[2022-04-29 18:19] LABS: Troponin I < 0.012 ng/mL (0.000-0.034)
[2022-04-29 19:43] LABS: Appearance Urine Clear (Clear); Bacteria Urine None Seen /hpf; Bilirubin Urine Negative (Negative); Blood Urine 1+ (Negative); Color Urine Yellow (Yellow); Glucose Urine UA Negative (Negative); Ketones Urine Trace mg/dL (Negative); Leukocyte Esterase Ur 1+ LEU/UL (Negative); Mucus Urine Present /lpf; Need Manual Microscopic Reviewed; Nitrate Urine Negative (Negative); Non Pathogenic Casts 0-2; Protein Urine Trace mg/dL (Negative); Specific Grav Ur 1.019 (1.001-1.035); Squamous Epithelial Cell Urine Occasional /hpf (Few); Urobilinogen Urine 0.2 mg/dL (<2.0); WBC Urine 21-50 /hpf; pH Urine 5.5 (5.0-9.0)
[2022-04-29 19:45] LABS: Add Urine Microscopic? YES
[2022-04-29 21:11] LABS: Troponin I < 0.012 ng/mL (0.000-0.034)
[2022-04-29 23:11] VITALS: BP 134/56; PULSE 74; RESP 17; O2SAT 98
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
[2022-04-30] VITALS (12 sets, daily range): BP systolic 99–143; BP diastolic 53–76; PULSE 72–96; RESP 20–30; TEMP 35.9–36.3; O2SAT 90–99; BMI 25.9
[2022-04-30] MEDS: FUROSEMIDE INJ 40 MG/4 ML VIAL 20 MG IV PUSH ×2 (00:23→12:30)
[2022-04-30 01:35] LABS: NT Pro B Type Natriuretic Pept 10100 pg/mL (19.9-100)
--- NOTE | 2022-04-30 11:09 | PM.DS ---
DS: Admitting Diagnosis Discharge Date 04/30/22 Admitting Diagnosis Syncopal episode DS: Discharge Diagnosis Discharge Diagnosis (1) Acute respiratory failure with hypoxia: Code(s): J96.01 - Acute respiratory failure with hypoxia Status: Acute Assessment and Plan: Chest x-ray and CT of the chest clear admission, repeat chest x-ray 04/30 showed diffuse interstitial prominence, worsened from prior CXR on 04/27 and 04/29, concerning for developing PNA vs congestion vs COPD mucus plugging? Weaned to room air at this time (2) Syncope: Code(s): R55 - Syncope and collapse Status: Acute Assessment and Plan: Patient with recurrent syncopal episodes in the past, likely secondary to aortic stenosis with associated orthostatic hypotension, not a candidate for TAVR Not a candidate for CEA, will hold off on carotid ultrasound Recheck orthostatics, pending (3) Chronic kidney disease, stage 3: Code(s): N18.30 - Chronic kidney disease, stage 3 unspecified Status: Acute Assessment and Plan: BUN and creatinine at patient's baseline (4) Paroxysmal atrial fibrillation: Code(s): I48.0 - Paroxysmal atrial fibrillation Status: Acute Assessment and Plan: Rate controlled and anticoagulated (5) Combined systolic and diastolic congestive heart failure: Code(s): I50.40 - Unspecified combined systolic (congestive) and diastolic (congestive) heart failure Status: Acute Assessment and Plan: Echo from March 2022 showed an EF of 50-55% with moderate aortic valve stenosis, mild to moderate valvular disease, no mention of pulmonary hypertension nor diastolic dysfunction (6) Acute UTI: Code(s): N39.0 - Urinary tract infection, site not specified Status: Acute Assessment and Plan: Cultures positive for E coli from 04/27, given Rocephin for 2 days, discharged on cefdinir 300 mg q.12 to complete a 7 day course of antibiotics, end date 05/03 (7) Presence of combination internal cardiac defibrillator (ICD) and pacemaker: Code(s): Z95.810 - Presence of automatic (implantable) cardiac defibrillator Status: Acute Assessment and Plan: Interrogated, no concerns Plan DVT prophylaxis with SCDs GI prophylaxis not indicated Code status full code DS: Summary Hospital Course Hospital Course: 81-year-old female with past medical history significant for dementia who lives at a memory care unit as well as other comorbidities is presenting with syncopal episode. Patient also noted to have hypoxia in the ER, this quickly resolved. Daughter and really take patient home as she has had many syncopal workups in the past. Etiology thought to be secondary to orthostatic hypotension compounded by pulmonary edema, continued UTI and aortic stenosis. She is to follow-up with her bulk loader outpatient. Lasix was restarted at half the home dose as it was previously discontinued due to dehydration. Midodrine was also added to combat the orthostatic hypotension due to the continued need for Lasix. Voicemail was left on her bulk loader's nurse line. The patient's echo and pacemaker interrogation report were faxed to her bulk loader. All this was discussed extensively with the family and patient. She was discharged in stable condition with close outpatient follow-up by Cardiology. See above and med rec for details. Time Spent with Patient Time attestation: Total time spent providing and/or coordinating discharge services: DS: Data Data Completed and Pending Labs on day of discharge: Labs from last 24 hours 04/30/22 04/29/22 04/29/22 00:43 20:44 19:08 WBC RBC Hgb Hct MCV MCH MCHC RDW Plt Count MPV Immature Gran % (Auto) Neut % (Auto) Lymph % (Auto) [place] % (Auto) Eos % (Auto) Baso % (Auto) Lymph # (Auto) [place] # (Auto) Eos # (Auto) Baso # (Auto)
--- NOTE | 2022-04-30 12:02 | PCRCNOTE ---
Home o2 eval completed. Pt needed assistance with walk. Weakness in legs, at end of walk needed full assist to stand. RN notified
[2022-04-30 12:05] LABS: Basophils Absolute Auto 0.1 K/mm3 (0.0-0.1); Basophils Percent Auto 0.5 % (0.2-1.2); Eosinophils Absolute Auto 0.2 K/mm3 (0-0.3); Eosinophils Percent Auto 2.3 % (0-4.4); Hematocrit 32.9 % (37.0-47.0); Hemoglobin 10.6 g/dL (12.0-15.0); Immature Granulocyte Absolute 0.04 K/mm3 (0.00-0.031); Immature Granulocyte Percent A 0.4 % (0-0.5); Lymphocytes Absolute Auto 1.66 K/mm3 (0.9-3.2); Lymphocytes Percent Auto 16.5 % (18.3-44.2); Mean Corpuscular HGB Conc 32.2 g/dl (32-36); Mean Corpuscular Hemoglobin 32.9 pg (26-34); Mean Corpuscular Volume 102.2 fl (80-100); Mean Platelet Volume 9.5 fl (7.4-10.4); Monocytes Absolute Auto 0.9 K/mm3 (0.1-0.6); Monocytes Percent Auto 8.6 % (2.6-8.5); Neutrophils Absolute Auto 7.2 K/mm3 (1.3-6.7); Neutrophils Percent Auto 71.7 % (45.5-73.1); Platelet Count Result 179 k/mm3 (150-375); Red Blood Count 3.22 M/mm3 (4.2-5.4); Red Cell Distribution Width 13.4 % (11.5-14.5); White Blood Count 10.1 K/mm3 (4.5-10.0)
[2022-04-30] MEDS: ESCITALOPRAM OXALATE 10 MG TABLET PO (12:29)
[2022-04-30] MEDS: CEFDINIR 300 MG CAPSULE PO (12:29)
[2022-04-30] MEDS: POTASSIUM CHLORIDE 10 MEQ TABLET.ER PO (12:29)
[2022-04-30] MEDS: METOPROLOL SUCCINATE EXT REL 25 MG TABCR PO (12:29)
[2022-04-30] MEDS: CYANOCOBALAMIN 1,000 MCG TABLET 1000 MCG PO (12:29)
[2022-04-30] MEDS: AMIODARONE HCL 100 MG TABLET PO (12:29)
[2022-04-30] MEDS: DONEPEZIL HCL 10 MG TABLET PO (12:30)
[2022-04-30] MEDS: SELENIUM SULFIDE 1% SHAMPOO 207 ML 1 APPLIC TOPICAL (12:31)
[2022-04-30 12:36] LABS: Alanine Aminotransferase 14 U/L (6-35); Albumin Level 3.5 g/dL (3.5-5.1); Alkaline Phosphatase 60 U/L (38-126); Anion Gap 6 mmol/L (8-16); Aspartate Amino Transferase 24 U/L (14-36); Bilirubin,Total 0.6 mg/dL (0.2-1.3); Blood Urea Nitrogen 12 mg/dL (7-17); Calcium 8.4 mg/dL (8.4-10.2); Carbon Dioxide 29 mmol/L (22-30); Chloride 107 mmol/L (98-107); Estimated CRCL calculation 32 ml/min; Estimated Glomerular Filt Rate 48; Glucose 122 mg/dL (65-110); Potassium 3.5 mmol/L (3.4-5.0); Sodium 142 mmol/L (137-145)
== END 2022-04-30 16:00 ==
LOC: ANHED 04-30 00:02 → ANH3MED 04-30 14:49
PROVIDERS: Admitting Provider Internal Medicine; Emergency Provider Emergency Medicine; Visit Provider Student in an Organized Health Care Education/Training Program
DX: J96.01 Acute respiratory failure with hypoxia (principal); R55 Syncope and collapse; I13.0 Hypertensive heart and chronic kidney disease with heart failure and stage 1 through stage 4 chronic kidney disease, or unspecified chronic kidney disease; N18.30 Chronic kidney disease, stage 3 unspecified; I50.40 Unspecified combined systolic (congestive) and diastolic (congestive) heart failure; I48.0 Paroxysmal atrial fibrillation; N39.0 Urinary tract infection, site not specified; Z95.810 Presence of automatic (implantable) cardiac defibrillator; G30.9 Alzheimer's disease, unspecified; F02.80 Dementia in other diseases classified elsewhere, unspecified severity, without behavioral disturbance, psychotic disturbance, mood disturbance, and anxiety; I08.3 Combined rheumatic disorders of mitral, aortic and tricuspid valves; M85.812 Other specified disorders of bone density and structure, left shoulder; M19.012 Primary osteoarthritis, left shoulder; K76.0 Fatty (change of) liver, not elsewhere classified; I42.8 Other cardiomyopathies; J84.9 Interstitial pulmonary disease, unspecified; E78.5 Hyperlipidemia, unspecified; R79.1 Abnormal coagulation profile; Z79.01 Long term (current) use of anticoagulants; Z79.52 Long term (current) use of systemic steroids; Z79.899 Other long term (current) drug therapy
CPT/HCPCS: 36415; 70450; 70496; 70498; 71045; 71275; 73030; 73060; 80048; 80053; 81001; 83605; 83880; 84484; 85025; 85380; 85610; 85730; 87086; 93005; 94618; 96361; 96365; 96375; 96376; 99285; A9270; G0378; J0696; J1940; J7030; Q9967